=== PATIENT | male | born 1950 | race Hispanic/Latino ===

== ENCOUNTER 2016-12-08 12:20 | Inpatient (IN) | payer MEDICARE ==
[~2016-12-08 12:20] MED LIST: NACL 0.9% 1000 ML 1,000 ML IV SCH; VANCOMYCIN/NS 1 GM/250 ML 1 GM/250 ML BAG IV NR
[2016-12-08 13:28] LABS: INR 1.06 (0.87-1.13)
[2016-12-08 13:29] LABS: Partial Thromboplastin Time 39.6 Sec. (24.2-36.6)
[2016-12-08 13:37] LABS: Anion Gap 17 mmol/L; Blood Urea Nitrogen 13 mg/dL (9-20); Calcium 8.6 mg/dL (8.4-10.2); Carbon Dioxide 26 mmol/L (22-30); Chloride 100.3 mmol/L (98-107); Glucose 91 mg/dL (75-100); Potassium 4.3 mmol/L (3.6-5.0); Sodium 139 mmol/L (137-145)
[2016-12-08 13:43] LABS: Hemoglobin 9.5 gm/dl (11.8-15.2); Mean Corpuscular HGB Conc 32 % (32-34); Mean Corpuscular Hemoglobin 23 pg (28-32); Mean Corpuscular Volume 74 fl (84-94); Platelet Count 470 K/mm3 (140-440); Red Blood Count 4.06 M/mm3 (3.65-5.03); Red Cell Distribution Width 17.5 % (13.2-15.2)
[2016-12-08 13:44] LABS: Basophils % (Auto) 0.6 % (0.0-1.8); Eosinophils % (Auto) 2.8 % (0.0-4.3)
[2016-12-08] MEDS ORDERED: HEPARIN/NS 5000 UNIT/500ML(CATH LAB) 1,000 ML IR ONE (15:04)
[2016-12-08] MEDS ORDERED: VANCOMYCIN/NS 1 GM/250 ML 1 GM/250 ML BAG IV ONE (15:05)
[2016-12-08] MEDS ORDERED: WATER FOR INJ (PF) 10 ML ONE (15:05)
[2016-12-08] MEDS ORDERED: CATHFLO ONE (15:06)
[2016-12-08] MEDS ORDERED: HEPARIN/ 0.45% NACL-25,000 UNIT/500 ML 25,000 UNIT/500 ML BAG ONE (15:07)
[2016-12-08] MEDS ORDERED: NACL 0.9% 1000 ML 1,000 ML ONE (15:07)
[2016-12-08] MEDS ORDERED: MORPHINE IV PRN (15:23)
[2016-12-08] MEDS ORDERED: NORCO 5/325 PO PRN (15:23)
[2016-12-08] MEDS ORDERED: ZOFRAN IV PRN (15:23)
[2016-12-08] MEDS: SUBLIMAZE ONE ×3 (15:38→16:24)
[2016-12-08] MEDS: VERSED ONE ×2 (15:38→15:57)
[2016-12-08] MEDS: XYLOCAINE 2% INFILTRATI ONE ×2 (15:39→16:01)
[2016-12-08] MEDS ORDERED: HEPARIN/ 0.45% NACL-25,000 UNIT/500 ML 25,000 UNIT/500 ML BAG SHEATH SCH (16:00)
[2016-12-08] MEDS ORDERED: NACL 0.9% 1000 ML 1,000 ML SHEATH SCH (16:00)
[2016-12-08] MEDS ORDERED: NACL 0.9% 1000 ML 1,000 ML IV SCH (16:00)
[2016-12-08] MEDS ORDERED: NACL 0.9% 1000 ML 1,000 ML EKOSCLUMEN SCH (16:00)
[2016-12-08] MEDS ORDERED: CATHFLO 20 MG in NACL 0.9% 500 ML 500 ML EKOSDLUMEN SCH (16:00)
[2016-12-08] MEDS: HEPARIN 10,000 UNITS/10 ML ONE ×2 (16:10→16:30)
--- NOTE | 2016-12-08 16:47 | Operative Report ---
Operative Report Operative Report: Date of Procedure: 12/08/2016 Pre-operative Diagnosis: Occlusion of Right Femoropopliteal Graft with Ulceration Post-operative Diagnosis: Same Procedure(s): 1. Ultrasound-Guided Access Left Common Femoral Artery 2. Diagnostic Right Lower Extremity Arteriogram (Patient with a Clinical Change ) 3. Angioplasty of Right Femoropopliteal Bypass Graft with 3 x 150 Balloon 4. Thrombolysis of Right Femoropopliteal Graft with 100 x 50 cm EKOS Thrombolysis Catheter 5. Radiologic Supervision with Interpretation Surgeon: Josemanuel Aburto M.D. Multiple Spindle Screw Machine Operator: None Anesthesia: Local and IV sedation EBL: Minimal Counts: Correct Complications: None Condition: Stable Specimen: None Indication: The patient is a 66-year-old male with a history of a right femoropopliteal bypass who presented to the office with 2 weeks of pain and ulcers that had developed on his foot. Physical exam revealed that his femoropopliteal bypass graft and no longer had a pulse. It was determined that he would require an arteriogram and possible intervention. He was given the risks, benefits, and alternative procedures and consented to procedure. Angiographic Findings: The right lower extremity arteriogram demonstrated the right common iliac and hypogastric were widely patent. The proximal external iliac artery was widely patent however there was approximately 40% stenosis of the distal external iliac artery and the previously placed stent. The common artery was widely patent. The profunda artery was widely patent. The SFA was chronically occluded and the femoropopliteal bypass graft was occluded. After cannulating the femoropopliteal bypass graft the catheter was advanced through the distal anastomosis which revealed approximately 50% stenosis of the distal popliteal artery, at the area of anastomosis. The tibioperoneal trunk and the posterior tibial artery were fairly atretic and the posterior tibial artery occluded in the distal calf. There was no reconstitution of the artery noted in the foot. The anterior tibial artery was diffusely stenosed with 40% stenosis in the proximal two thirds of the artery. The EKOS thrombolysis catheter was placed extending the entire length of the bypass graft. Description of Procedure: The patient was brought to the collaborating supervising physician and laid in supine position. After he was adequately sedated his left groin was prepped and draped in normal sterile fashion. Ultrasound was used to identify the left common femoral artery in the overlying skin and soft tissue was anesthetized with lidocaine. A small stab incision was made and then micropuncture technique was used to access the anterior wall of the left common femoral artery. A 6 [place]an sheath was then placed by Seldinger technique. A 0.035 Bentson wire and Omni Flush catheter were advanced to the distal aorta and aortogram was performed. The catheter and wire were advanced up and over the bifurcation and a right lower extremity arteriogram was performed to previously described findings. I advanced a 0.035 J-wire to the profunda artery and then placed a 6 [place]an 45 cm destination sheath into the common femoral artery. At this point the patient was systemically heparinized. With the use of her vertebral catheter and a 0.035 advantage wire I was able to cannulate the femoropopliteal bypass graft in a fasting wire and catheter down into the below-knee popliteal artery. Because the lumen of the bypass graft with small eye using a 3 x 150 mm balloon to dilate the graft. I then advanced a 100 x 50 cm EKOS thrombolysis catheter into position. I injected 4 mg of TPA into the drug port to begin that thrombolysis process. I then primed the sheath as well as the coolant port with heparin. All catheters were then secured in place and dressed sterilely. The patient tolerated the procedure well. All sponge, needle, instrument counts were correct. The patient was taken to the ICU in stable condition.
[2016-12-08 18:06] LABS: Mean Corpuscular HGB Conc 30 % (32-34); Mean Corpuscular Volume 76 fl (84-94); Platelet Count 468 K/mm3 (140-440); Red Blood Count 4.55 M/mm3 (3.65-5.03)
[2016-12-08 18:07] LABS: Basophils % (Auto) 0.7 % (0.0-1.8); Eosinophils % (Auto) 3.2 % (0.0-4.3)
[2016-12-08 18:08] LABS: Hematocrit 34.6 % (35.5-45.6); Hemoglobin 10.5 gm/dl (11.8-15.2); Mean Corpuscular Hemoglobin 23 pg (28-32)
[2016-12-08 18:17] LABS: INR 1.25 (0.87-1.13)
[2016-12-08 18:18] LABS: Fibrinogen 512 mg/dl (211-480)
[2016-12-08 18:22] LABS: Anion Gap 20 mmol/L; Blood Urea Nitrogen 12 mg/dL (9-20); Calcium 8.9 mg/dL (8.4-10.2); Carbon Dioxide 22 mmol/L (22-30); Chloride 101.9 mmol/L (98-107); Glucose 80 mg/dL (75-100); Potassium 4.5 mmol/L (3.6-5.0); Sodium 139 mmol/L (137-145)
[2016-12-08 18:40] LABS: Partial Thromboplastin Time > 240.0 Sec. (24.2-36.6)
[2016-12-08 21:15] LABS: Basophils % (Auto) 0.5 % (0.0-1.8); Eosinophils % (Auto) 2.3 % (0.0-4.3); Hemoglobin 10.3 gm/dl (11.8-15.2); Mean Corpuscular HGB Conc 31 % (32-34); Mean Corpuscular Volume 74 fl (84-94); Platelet Count 492 K/mm3 (140-440); Red Blood Count 4.47 M/mm3 (3.65-5.03); Red Cell Distribution Width 17.5 % (13.2-15.2); White Blood Count 9.9 K/mm3 (4.5-11.0)
[2016-12-08] MEDS: MORPHINE IV PRN (21:15)
[2016-12-08 21:21] LABS: Mean Corpuscular Hemoglobin 23 pg (28-32)
[2016-12-08] MEDS ORDERED: DILAUDID IV ONE (22:42)
[2016-12-08] MEDS: XANAX PO PRN (22:57)
[2016-12-09] MEDS: MORPHINE IV PRN ×2 (02:48→15:32)
[2016-12-09 04:49] LABS: Basophils % (Auto) 0.6 % (0.0-1.8); Eosinophils % (Auto) 1.4 % (0.0-4.3); Hematocrit 31.9 % (35.5-45.6); Mean Corpuscular HGB Conc 31 % (32-34); Mean Corpuscular Volume 75 fl (84-94); Platelet Count 397 K/mm3 (140-440); Red Blood Count 4.26 M/mm3 (3.65-5.03); Red Cell Distribution Width 17.8 % (13.2-15.2); White Blood Count 9.8 K/mm3 (4.5-11.0)
[2016-12-09 04:54] LABS: Mean Corpuscular Hemoglobin 23 pg (28-32)
[2016-12-09 04:58] LABS: Anion Gap 17 mmol/L; BUN/Creatinine Ratio 13.75; Blood Urea Nitrogen 11 mg/dL (9-20); Calcium 8.6 mg/dL (8.4-10.2); Carbon Dioxide 24 mmol/L (22-30); Chloride 104.7 mmol/L (98-107); Fibrinogen 307 mg/dl (211-480); Glucose 97 mg/dL (75-100); Potassium 4.1 mmol/L (3.6-5.0); Sodium 142 mmol/L (137-145)
[2016-12-09 07:28] LABS: Basophils % (Auto) 0.8 % (0.0-1.8); Eosinophils % (Auto) 1.5 % (0.0-4.3); Hematocrit 30.8 % (35.5-45.6); Hemoglobin 9.5 gm/dl (11.8-15.2); Mean Corpuscular HGB Conc 31 % (32-34); Mean Corpuscular Volume 75 fl (84-94); Platelet Count 400 K/mm3 (140-440); Red Blood Count 4.12 M/mm3 (3.65-5.03); Red Cell Distribution Width 17.8 % (13.2-15.2); White Blood Count 10.4 K/mm3 (4.5-11.0)
[2016-12-09 07:35] LABS: Mean Corpuscular Hemoglobin 23 pg (28-32)
[2016-12-09 07:38] LABS: Fibrinogen 244 mg/dl (211-480)
[2016-12-09] MEDS: NORCO 10/325 PO PRN ×2 (09:39→18:54)
[2016-12-09] MEDS: PROTONIX PO SCH (09:39)
[2016-12-09] MEDS: LEVAQUIN PO SCH (09:39)
[2016-12-09] MEDS ORDERED: HEPARIN/NS 5000 UNIT/500ML(CATH LAB) 1,000 ML IR ONE (11:06)
[2016-12-09] MEDS ORDERED: VANCOMYCIN/NS 1 GM/250 ML 1 GM/250 ML BAG IV ONE (11:07)
[2016-12-09] MEDS: HEPARIN 10,000 UNITS/10 ML ONE ×2 (11:26→11:40)
[2016-12-09] MEDS: XYLOCAINE 2% INFILTRATI ONE ×2 (11:27→11:38)
[2016-12-09] MEDS: VERSED ONE ×4 (11:28→12:05)
[2016-12-09] MEDS: SUBLIMAZE ONE ×4 (11:29→12:05)
[2016-12-09] MEDS ORDERED: NITROGLYCERIN SYRINGE 3 ML ONE (11:53)
--- NOTE | 2016-12-09 12:29 | Admit Criteria Form ---
Admission Criteria Documentation: VASCULAR DISEASE GRG Clinical Indications for Admission to Inpatient Care (Place 'X' for any and all applicable criteria): Hospital admission is needed for appropriate care of the patient because of ANY ONE of the following (1)(2)(3)(4): [ ]I. Life-threatening or limb-threatening skin ulcer as indicated by ANY ONE of the following(5): [ ]a) Surrounding cellulitis unresponsive to outpatient treatment [ ]b) Wet gangrene [ ]c) Lymphangitis [ ]d) Bacteremia [ ]II. Gangrene requiring intensity and frequency of care not manageable to outpatient, emergency, or observation level of care(5) [ ]III. Severe pain requiring acute inpatient management [ X]IV. Interventional revascularization (eg, surgery, thrombolysis) needed (eg , critical limb ischemia)(21) [ ]V. Urgent inpatient IV anticoagulation needed due to ALL of the following: [ ]a) Temporary subtherapeutic anticoagulation unacceptable because of high risk of short-term venous or arterial thromboembolism due to ANY ONE of the following(7)(8)(9): [ ]i) Venous thromboembolism within the past 12 months [ ]ii) Underlying malignancy [ ]iii) Patient with mechanical cardiac valve(10)(11) [ ]iv) Underlying hypercoagulable state (eg, protein C or protein S deficiency, antithrombin deficiency, antiphospholipid antibodies) [ ]v) Patient at high risk of thromboembolism (eg, status post orthopedic surgery, history of recurrent venous thromboembolism) [ ]vi) Atrial fibrillation with rheumatic valvular heart disease [ ]vii) Atrial fibrillation with 3 or MORE of the following : [ ]1) Congestive heart failure [ ]2) Hypertension [ ]3) Age 65 years or older [ ]4) Diabetes mellitus [ ]5) History of thromboembolism (eg, stroke, TIA , or systemic embolization) more than 3 months ago [ ]6) Female gender [ ]b) Contraindications to outpatient use of "bridging" agent or alternative oral anticoagulant as indicated by ALL of the following: [ ]i) Contraindication to outpatient use of low-molecular -weight heparin as "bridging" agent as indicated by ANY ONE of the following(8) : [ ]1) Documented current or history of heparin- induced thrombocytopenia(12) [ ]2) Severe thrombocytopenia (eg, platelet count less than 50,000/mm3 (50 x109/L)) [ ]3) Documented allergy to heparin, low- molecular-weight heparin, or pork products [ ]4) Renal failure (creatinine clearance < 30 mL /min/1.73m2 (0.50 mL/sec/1.73m2) or on dialysis) [ ]5) Inability to manage self-injection (eg, by patient, caregiver, or visiting nurse) [ ]ii) Contraindication to outpatient use of fondaparinux as "bridging" agent as indicated by ANY ONE of the following(13)(14)(15)(16): [ ]1) Severe thrombocytopenia (eg, platelet count less than 50,000/mm3 (50 x109/L)) [ ]2) Hypersensitivity to fondaparinux, related drugs, or product components [ ]3) Renal failure (creatinine clearance less than 30 mL/min/1.73m2 (0.50 mL/sec/1.73m2) or on dialysis) [ ]4) Inability to manage self-injection (eg, by patient, caregiver, or visiting nurse) [ ]iii) Oral direct thrombin inhibitor (eg, dabigatran) or oral coagulation factor Xa inhibitor (eg, rivaroxaban) not appropriate as oral anticoagulation (eg, indication not appropriate) or contraindicated (eg, hypersensitivity, renal failure)(13)(16)(17)(18)(19)(20) [ ]. Suspected severe acute ischemia due to peripheral vascular disease as indicated by ANY ONE of the following(5)(6): [ ]a) Tissue necrosis [ ]b) Severe pain [ ]c) Acute pulselessness [ ]d) Other evidence of acute severe ischemia (eg, lactic acidosis , motor dysfunction) [ ]VII. Acute or newly diagnosed major vessel (eg, aorta) dissection, rupture, or leakage(5)(6)(22)(23) [ ]VIII.Vascular Disease and ALL of the following: [ ]a) Symptom or finding for which emergency and observation care have failed or are not considered appropriate (Use General Criteria: Observation Care as appropriate) [ ]b) Presence of ANY ONE of the following: [ ]i) A General Admission Criteria [ ]ii) A Pediatric General Admission Criteria The original [facility] content created by Vern Che has been revised. The portions of the content which have been revised are identified through the use of italic text or in bold, and [facility] has neither reviewed nor approved the modified material. All other unmodified content is copyright [facility]. Please see references footnoted in the original [facility] edition 2016 Admission Criteria Met: Yes
--- NOTE | 2016-12-09 12:43 | Operative Report ---
Operative Report Operative Report: Date of Procedure: 12/09/2016 Pre-operative Diagnosis: Follow-Up Arteriogram after Thrombolysis of Right Femoropopliteal Bypass Graft Post-operative Diagnosis: Same Procedure(s): 1. Removal of Thrombolysis Catheter 2. Follow-Up Right Lower Extremity Arteriogram 3. Angioplasty of Right Anterior Tibial Artery with 3 x 150 Balloon 4. Angioplasty of Right Femoropopliteal Bypass Graft with 5 x 200 Balloon 5. Closure of Left Femoral Arteriotomy with 6 English Angio-Seal 6. Angioplasty of Right External Iliac Artery With 6 x 40 Balloon 7. Radiologic Supervision with Interpretation Surgeon: Josemanuel Aburto M.D. Finance Effectiveness Manager: Casey Anesthesia: Local and IV sedation EBL: Minimal Counts: Correct Complications: None Condition: Stable Specimen: None Indication: The patient is a 66-year-old male with a thrombosed right femoropopliteal bypass graft that underwent thrombolysis overnight. He returns for removal of the thrombolysis catheter and possible further intervention. He was given the risk, benefits, and alternative procedures and consented to procedure. Angiographic Findings: The femoropopliteal bypass graft was patent however it was diffusely stenotic approximately 50%. Anterior tibial artery was diffusely stenotic in the proximal two thirds at approximately 40% stenosis. There was 50% stenosis in the distal external iliac artery. After intervention the external iliac artery , femoropopliteal bypass, and anterior tibial arteries were all widely patent with less than 10% residual stenosis. Description of Procedure: The patient was brought into the collaborative physician and laid in supine position. After he was adequately sedated his left groin as well as his indwelling catheters and sheath were prepped and draped in normal sterile fashion. The patient was systemically heparinized prior to beginning the procedure. A 0.035 Bentson wire was advanced through the thrombolysis catheter and into the below-knee popliteal artery. An arteriogram was performed with the procedures graft findings. Vertebral catheter was then advanced over the Bentson wire and a 0.018 V18 wire was advanced into the anterior tibial artery. Angioplasty of the stenotic areas in the anterior tibial artery were performed with a 3 x 150 below the result of a widely patent anterior tibial artery. Additionally I angioplastied the below-knee popliteal artery which was now widely patent. I made attempts to traverse the atretic and distally occluded posterior tibial artery without success. I abandoned this attempt and then perform angioplasty of the entire femoropopliteal bypass graft with a 5 x 200 balloon. The result was a widely patent graft without residual stenosis or thrombus. I then perform angioplasty of the distal external iliac artery with a 6 x 40 balloon with result of a widely patent artery and brisk flow of contrast from the external iliac extending through the graft and into the anterior tibial artery. I told her sheath back into the left external iliac artery and advanced a 0.035 J wire into the aorta. I attempted to close the left femoral arteriotomy with a ProGlide closure device however this failed so I used a 6 English Angio- Seal for closure. The patient tolerated the procedure well. All sponge, needle , and estimate counts were correct. The patient's foot appeared high and bright red with excellent Doppler signals in the foot. He was taken to the intensive care unit in stable condition.
[2016-12-09] MEDS: ELIQUIS PO SCH ×2 (18:52→21:43)
[2016-12-09] MEDS: XANAX PO PRN (21:42)
[2016-12-09] MEDS ORDERED: ELIQUIS PO SCH ×2 (22:00)
[2016-12-10] MEDS: NORCO 10/325 PO PRN ×2 (03:42→13:14)
[2016-12-10 05:12] LABS: BUN/Creatinine Ratio 11.42; Blood Urea Nitrogen 8 mg/dL (9-20); Calcium 8.6 mg/dL (8.4-10.2); Carbon Dioxide 15 mmol/L (22-30); Chloride 99.4 mmol/L (98-107); Glucose 95 mg/dL (75-100); Potassium 4.3 mmol/L (3.6-5.0); Sodium 134 mmol/L (137-145)
[2016-12-10 05:13] LABS: Anion Gap 24 mmol/L
[2016-12-10] MEDS: LEVAQUIN PO SCH (09:28)
[2016-12-10] MEDS: PROTONIX PO SCH (09:28)
[2016-12-10] MEDS: ELIQUIS PO SCH (09:29)
--- NOTE | 2016-12-10 10:04 | Consultation ---
History of Present Illness - Reason for Consult Consult date: 12/10/16 Post-Op Follow up Requesting physician: CLARISSA CHERRY - History of Present Illness 66 y/o male status post detailed procedure below, admitted to the ICU for post- op observation. Date of Procedure: 12/09/2016 Pre-operative Diagnosis: Follow-Up Arteriogram after Thrombolysis of Right Femoropopliteal Bypass Graft Post-operative Diagnosis: Same Procedure(s): 1. Removal of Thrombolysis Catheter 2. Follow-Up Right Lower Extremity Arteriogram 3. Angioplasty of Right Anterior Tibial Artery with 3 x 150 Balloon 4. Angioplasty of Right Femoropopliteal Bypass Graft with 5 x 200 Balloon 5. Closure of Left Femoral Arteriotomy with 6 Vietnamese Angio-Seal 6. Angioplasty of Right External Iliac Artery With 6 x 40 Balloon 7. Radiologic Supervision with Interpretation Past History Past Medical History: GERD, PVD, other (anxiety) Past Surgical History: Other (Prior vascular surgeries) Social history: no significant social history Family history: no significant family history Medications and Allergies Allergies Allergy/AdvReac Type Severity Reaction Status Date / Time Penicillins Allergy Severe Swelling Verified 06/19/14 11:50 amitriptyline HCl AdvReac Dizziness Verified 06/19/14 09:50 [From Elavil] Home Medications Medication Instructions Recorded Confirmed Last Taken Type Aspirin [Aspirin BABY CHEW TAB] 81 mg PO DAILY 06/19/14 12/08/16 12/08/16 08:00 History 81mg Omeprazole [PriLOSEC] 20 mg PO DAILY 06/19/14 12/08/16 12/08/16 08:00 History 20mg Potassium Chloride 20 meq PO BID 06/19/14 12/08/16 12/08/16 08:00 History 20meq Clopidogrel [Plavix] 75 mg PO QDAY #30 tablet 07/01/14 12/08/16 12/08/16 08:00 Rx 75mg ALPRAZolam [Xanax TAB] 1 mg PO TID PRN 08/26/16 12/08/16 12/08/16 08:00 History Multivit-Min/FA/Lycopen/Lutein 1 each PO QDAY 08/26/16 12/08/16 12/08/16 08:00 History [Centrum Silver Tablet] HYDROcodone/APAP 10-325 [[place] 1 each PO Q6HR PRN #90 tablet 09/09/16 12/08/16 12/08/16 08:00 Rx 10/325] Ciprofloxacin HCl [Ciprofloxacin 500 mg PO BID 12/08/16 12/08/16 12/08/16 08:00 History TAB] Active Meds: Active Medications Acetaminophen/Hydrocodone Bitart ([place] 10/325) 1 each PO Q8H PRN PRN Reason: Pain, Moderate (4-6) Last Admin: 12/10/16 03:42 Dose: 1 each Alprazolam (Xanax) 1 mg PO Q8H PRN PRN Reason: Anxiety Last Admin: 12/09/16 21:42 Dose: 1 mg Apixaban (Eliquis) 10 mg PO Q12HR [place] PRN Reason: Protocol Last Admin: 12/10/16 09:29 Dose: 10 mg Sodium Chloride (Nacl 0.9% 1000 Ml) 1,000 mls @ 42 mls/hr IV DIRECT [place] Last Admin: 12/09/16 01:19 Dose: 42 mls/hr Sodium Chloride (Nacl 0.9% 1000 Ml) 1,000 mls @ 30 mls/hr IV DIRECT [place] Levofloxacin (Levaquin) 500 mg PO Q24HR [facility] Last Admin: 12/10/16 09:28 Dose: 500 mg Morphine Sulfate (Morphine) 2 mg IV Q4H PRN PRN Reason: Pain, Moderate (4-6) Morphine Sulfate (Morphine) 4 mg IV Q4H PRN PRN Reason: Pain , Severe (7-10) Last Admin: 12/09/16 15:32 Dose: 4 mg Ondansetron HCl (Zofran) 4 mg IV Q8H PRN PRN Reason: Nausea And Vomiting Pantoprazole Sodium (Protonix) 20 mg PO QDAY [facility] Last Admin: 12/10/16 09:28 Dose: 20 mg Review of Systems All systems: negative Exam - Constitutional Vitals: Temp Pulse Resp BP Pulse Ox 97.7 F 90 12 135/69 97 12/10/16 08:00 12/10/16 08:13 12/10/16 08:13 12/10/16 08:00 12/10/16 08:13 General appearance: Present: no acute distress, other (thin) - EENT Eyes: Present: PERRL, EOM intact ENT: hearing intact, poor dentition - Neck Neck: Present: supple - Respiratory Respiratory effort: normal Respiratory: bilateral: CTA - Cardiovascular Rhythm: regular Heart Sounds: Present: S1 & S2 - Extremities Extremities: no ischemia - Abdominal General gastrointestinal: Present: soft, non-tender Male genitourinary: Present: deferred Results - Labs CBC & Chem 7: 12/09/16 07:08 12/10/16 03:43 Labs: Abnormal lab results 12/10/16 Range/Units 03:43 Sodium 134 L D (137-145) mmol/L Carbon Dioxide 15 L D (22-30) mmol/L BUN 8 L (9-20) mg/dL Creatinine 0.7 L (0.8-1.5) mg/dL Assessment and Plan 66 y/o male status post vascular procedure, stable. 1. Await vascular recs 2. hopeful patient can be discharged to home 3. Resume all home meds
--- NOTE | 2016-12-10 13:10 | Short Stay Summary ---
Short Stay Documentation Date of service: 12/10/16 Narrative H&P: 66-year-old male with thrombosed right femoral-popliteal bypass graft and threatened right lower extremity who presents for thrombolysis. - History Principal diagnosis: thrombosed right femoral-popliteal bypass; acute limb ischemia H&P: obtained from office Past Medical History: GERD, PVD, other (anxiety) Past Surgical History: Other (Prior vascular surgeries) Social history: no significant social history - Allergies and Medications Current Medications: Allergies Penicillins Allergy (Severe, Verified 06/19/14 11:50) Swelling RESP DIFF amitriptyline HCl [From Elavil] Adverse Reaction (Verified 06/19/14 09:50) Dizziness HYPOTENSION,PASSED OUT Home Medications Medication Instructions Recorded Confirmed Last Taken Type Aspirin [Aspirin BABY CHEW TAB] 81 mg PO DAILY 06/19/14 12/08/16 12/08/16 08:00 History 81mg Omeprazole [PriLOSEC] 20 mg PO DAILY 06/19/14 12/08/16 12/08/16 08:00 History 20mg Potassium Chloride 20 meq PO BID 06/19/14 12/08/16 12/08/16 08:00 History 20meq Clopidogrel [Plavix] 75 mg PO QDAY #30 tablet 07/01/14 12/08/16 12/08/16 08:00 Rx 75mg ALPRAZolam [Xanax TAB] 1 mg PO TID PRN 08/26/16 12/08/16 12/08/16 08:00 History Multivit-Min/FA/Lycopen/Lutein 1 each PO QDAY 08/26/16 12/08/16 12/08/16 08:00 History [Centrum Silver Tablet] HYDROcodone/APAP 10-325 [[place] 1 each PO Q6HR PRN #90 tablet 09/09/16 12/08/16 12/08/16 08:00 Rx 10/325] Ciprofloxacin HCl [Ciprofloxacin 500 mg PO BID 12/08/16 12/08/16 12/08/16 08:00 History TAB] Active Medications Acetaminophen/Hydrocodone Bitart ([place] 10/325) 1 each PO Q8H PRN PRN Reason: Pain, Moderate (4-6) Last Admin: 12/10/16 03:42 Dose: 1 each Alprazolam (Xanax) 1 mg PO Q8H PRN PRN Reason: Anxiety Last Admin: 12/09/16 21:42 Dose: 1 mg Apixaban (Eliquis) 10 mg PO Q12HR [facility] PRN Reason: Protocol Last Admin: 12/10/16 09:29 Dose: 10 mg Sodium Chloride (Nacl 0.9% 1000 Ml) 1,000 mls @ 42 mls/hr IV DIRECT [facility] Last Admin: 12/09/16 01:19 Dose: 42 mls/hr Sodium Chloride (Nacl 0.9% 1000 Ml) 1,000 mls @ 30 mls/hr IV DIRECT [place] Levofloxacin (Levaquin) 500 mg PO Q24HR [facility] Last Admin: 12/10/16 09:28 Dose: 500 mg Morphine Sulfate (Morphine) 2 mg IV Q4H PRN PRN Reason: Pain, Moderate (4-6) Morphine Sulfate (Morphine) 4 mg IV Q4H PRN PRN Reason: Pain , Severe (7-10) Last Admin: 12/09/16 15:32 Dose: 4 mg Ondansetron HCl (Zofran) 4 mg IV Q8H PRN PRN Reason: Nausea And Vomiting Pantoprazole Sodium (Protonix) 20 mg PO QDAY [facility] Last Admin: 12/10/16 09:28 Dose: 20 mg - Physical exam General appearance: mild distress (right limb pain) Lungs: Normal air movement Gastrointestinal: normal Extremities: no pulses intact (right lower extremity) - Hospital course Hospital course: 66-year-old male with critical limb ischemia of the right lower extremity presented with a thrombosed right femoral-popliteal bypass graft and subsequently had rest pain/threatened right lower extremity. He underwent thrombolysis of the right lower extremity and the next day had subsequently had angioplasty performed of his femoral-popliteal bypass graft and anterior tibial artery. He now has a warm right lower extremity which is well perfused with a palpable right femoral popliteal bypass graft and anterior tibial artery with soft compartments of his calf. His left common femoral artery access site has no issues associated with it, and has an excellent pulse. His left dorsalis pedis is palpable. Patient has been converted from aspirin and Plavix to Plavix and Eliquis due to underlying thrombosis of the graft. He is in no distress, and can be safely discharged home. [facility] and has a scheduled followup date with Dr. Aburot in 2 weeks. - Disposition Condition at discharge: Stable Disposition: [id number] TO HOME OR SELFCARE - Discharge Diagnoses (1) Critical lower limb ischemia Status: Acute Short Stay Discharge Plan Activity: advance as tolerated Weight Bearing Status: Weight Bear as Tolerated Diet: regular Wound: keep clean and dry Special Instructions: other (keep left groin dry until healed ; keep right foot dry ; apply betadine to right foot wounds twice a day ) Additional Instructions: Discontinue asprin. Start taking Eliquis. Eliquis is 10 mg PO BID x 7 days, then Eliquis is 5 mg PO BID afterwards Followup with Dr. Aburto Follow up with: CLARISSA ARIAS MD [Primary Care Provider] - 7 Days
[2016-12-10 15:04] VITALS: BP 118/64
== END 2016-12-10 14:50 | disposition home or self-care (01) | DRG 272 ==
LOC: CATHLABREC 12:20 → CC1 16:03
PROVIDERS: ADMIT Surgery Vascular Surgery; ATTEND Surgery Vascular Surgery
PROC: B41F1ZZ Fluoroscopy of Right Lower Extremity Arteries using Low Osmolar Contrast (ICD-10-PCS; 2016-12-08)
PROC: 3E05317 Introduction of Other Thrombolytic into Peripheral Artery, Percutaneous Approach (ICD-10-PCS; 2016-12-08)
PROC: 04HK33Z Insertion of Infusion Device into Right Femoral Artery, Percutaneous Approach (ICD-10-PCS; 2016-12-08)
PROC: 04CK3ZZ Extirpation of Matter from Right Femoral Artery, Percutaneous Approach (ICD-10-PCS; principal; 2016-12-09)
PROC: 047M3DZ Dilation of Right Popliteal Artery with Intraluminal Device, Percutaneous Approach (ICD-10-PCS; principal; 2016-12-09)
PROC: 047P3ZZ Dilation of Right Anterior Tibial Artery, Percutaneous Approach (ICD-10-PCS; 2016-12-09)
PROC: 04CM3ZZ Extirpation of Matter from Right Popliteal Artery, Percutaneous Approach (ICD-10-PCS; 2016-12-09)
PROC: 047K3DZ Dilation of Right Femoral Artery with Intraluminal Device, Percutaneous Approach (ICD-10-PCS; 2016-12-09)
PROC: 047H3ZZ Dilation of Right External Iliac Artery, Percutaneous Approach (ICD-10-PCS; 2016-12-09)
PROC: 04PY33Z Removal of Infusion Device from Lower Artery, Percutaneous Approach (ICD-10-PCS; 2016-12-09)
PROC: B41F1ZZ Fluoroscopy of Right Lower Extremity Arteries using Low Osmolar Contrast (ICD-10-PCS; 2016-12-09)
DX: T82.868A Thrombosis due to vascular prosthetic devices, implants and grafts, initial encounter (principal); K21.9 Gastro-esophageal reflux disease without esophagitis; L97.519 Non-pressure chronic ulcer of other part of right foot with unspecified severity; F41.9 Anxiety disorder, unspecified; M19.90 Unspecified osteoarthritis, unspecified site; I70.213 Atherosclerosis of native arteries of extremities with intermittent claudication, bilateral legs; Y83.2 Surgical operation with anastomosis, bypass or graft as the cause of abnormal reaction of the patient, or of later complication, without mention of misadventure at the time of the procedure; I70.239 Atherosclerosis of native arteries of right leg with ulceration of unspecified site; Z88.0 Allergy status to penicillin; Z79.82 Long term (current) use of aspirin; Z79.899 Other long term (current) drug therapy; Z80.9 Family history of malignant neoplasm, unspecified; Y92.89 Other specified places as the place of occurrence of the external cause
CPT/HCPCS: 36415; 37211; 37214; 37220; 37224; 37228; 75625; 75710; 80048; 85025; 85384; 85520; 85610; 85730; 86850; 86900; 86901; C1725; C1757; C1760; C1769; C1887; C1894; J1170; J1644; J2250; J2270; J2997; J3010; J3370; J7030; J7040; Q9967